=== PATIENT | male | born 1950 | race Caucasian/White ===

== ENCOUNTER 2021-03-09 10:38 | Emergency (ER) | payer OTHER, MEDICARE ==
[~2021-03-09] VITALS: Ht 177.8 cm; Wt 102.1 kg
[2021-03-09 11:32] LABS: BASOPHILS ABSOLUTE AUTO 0.06 K/mm3 (0.00-0.23); BASOPHILS PERCENT AUTO 1 % (0-2); EOSINOPHILS ABSOLUTE AUTO 0.09 K/mm3 (0.00-0.68); EOSINOPHILS PERCENT AUTO 1 % (0-6); Hematocrit 41.4 % (37.0-53.0); Hemoglobin 14.1 g/dL (13.5-17.5); IMMATURE GRAN ABSOLUTE AUTO 0.03 K/mm3 (0.00-0.10); IMMATURE GRAN PERCENT AUTO 0 % (0-1); LYMPHOCYTES ABSOLUTE AUTO 1.62 K/mm3 (0.84-5.20); LYMPHOCYTES PERCENT AUTO 15 % (21-46); MONOCYTES ABSOLUTE AUTO 1.21 K/mm3 (0.16-1.47); MONOCYTES PERCENT AUTO 11 % (4-13); Mean Corpuscular HGB 30.2 pg (26.0-34.0); Mean Corpuscular HGB Conc 34.1 g/dL (31.5-36.5); Mean Corpuscular Volume 89 fL (80-100); Mean Platelet Volume 9.1 fL (9.1-12.4); NEUTROPHILS ABSOLUTE AUTO 7.79 K/mm3 (1.96-9.15); NEUTROPHILS PERCENT AUTO 72 % (41-73); Platelet Count 247 K/mm3 (150-400); RDW Standard Deviation 39.2 fL (35.1-46.3); Red Blood Cell Count 4.67 M/mm3 (4.30-5.90)
[2021-03-09 11:50] LABS: Alanine Aminotransfer (ALT/SGP 20 U/L (12-78); Albumin, Blood 3.4 g/dL (3.4-5.0); Albumin/Globulin Ratio 0.9 (0.8-1.8); Alk Phos 53 U/L (50-136); Anion Gap 6 mmol/L (6-16); Aspartate Aminotrans (AST/SGOT 14 U/L (12-37); Bilirubin, Total 0.9 mg/dL (0.1-1.0); Blood Urea Nitrogen 18 mg/dL (8-24); Bun/Creatinine Ratio 16.1 (12.0-20.0); CO2, Blood 25 mmol/L (21-32); CPK Creatine Kinase 52 U/L (39-308); Chloride, Blood 104 mmol/L (98-108); Creatinine, Blood 1.12 mg/dL (0.60-1.20); Globulin, Blood 3.6 g/dL (2.2-4.0); Glomerular Filtration Rate >60 (60-); Glucose, Blood 106 mg/dL (70-99); Potassium, Blood 4.1 mmol/L (3.5-5.5); Sodium, Blood 135 mmol/L (136-145)
[2021-03-09] MEDS ORDERED: HYDR1TAB94 PO (11:56)
[2021-03-09] MEDS ORDERED: PSEU120ER PO (11:56)
[2021-03-09] MEDS ORDERED: METF500 PO (11:56)
[2021-03-09] MEDS ORDERED: Tessalon200 MG PO (11:58)
[2021-03-09] MEDS ORDERED: NITR100CA PO (11:58)
[2021-03-09] MEDS ORDERED: SPIR25 (11:59)
[2021-03-09] MEDS ORDERED: ASPI81CH PO (12:12)
[2021-03-09] MEDS ORDERED: TRAZ100 PO (12:12)
[2021-03-09] MEDS ORDERED: CYCL10 PO (12:12)
[2021-03-09] MEDS ORDERED: ONDA4ODT MM (14:23)
== END 2021-03-09 14:50 | disposition home or self-care (01) ==
LOC: ER 10:38
PROVIDERS: Emergency Medicine
DX: K52.9 Noninfective gastroenteritis and colitis, unspecified (principal); R53.83 Other fatigue; Z88.2 Allergy status to sulfonamides
CPT/HCPCS: 80053; 82550; 85025; 93005; 93010; 96374; 99284-25; J2405

== ENCOUNTER → 2021-07-15 | Outpatient (CLI) | payer OTHER, MEDICARE ==
[~2021-07-15] MED LIST: ASPI81CH PO; CYCL10 PO; HYDR1TAB94 PO; METF500 PO; NITR100CA PO; ONDA4ODT MM; PSEU120ER PO; SPIR25; TRAZ100 PO; Tessalon200 MG PO
[2021-07-15 19:24] LABS: Microalb/Creat Ratio UR, Rand 6.008 mg/g (0.000-30.000); Microalbumin, Random Urine 7.21 mg/L (0.000-20.000)
== END | disposition home or self-care (01) ==
LOC: LAB 14:20 → LAB SHORT 14:20 → LAB FUT 06-29 15:50
PROVIDERS: Family Medicine
DX: E11.42 Type 2 diabetes mellitus with diabetic polyneuropathy (principal)
CPT/HCPCS: 82043; 82570

== ENCOUNTER → 2022-02-03 | Outpatient (CLI) | payer OTHER, MEDICARE ==
[2022-02-03 15:00] LABS: Creatinine, Urine Random 96.5 mg/dL (27.00-270.00)
[2022-02-03 15:03] LABS: Microalb/Creat Ratio UR, Rand 6.052 mg/g (0.000-30.000); Microalbumin, Random Urine 5.84 mg/L (0.000-20.000)
== END | disposition home or self-care (01) ==
LOC: LAB SHORT 12:28
PROVIDERS: Family Medicine
DX: E11.9 Type 2 diabetes mellitus without complications (principal)
CPT/HCPCS: 82043; 82570

== ENCOUNTER 2023-01-18 18:43 | Emergency (ER) | payer OTHER ==
[~2023-01-18] VITALS: Ht 180.3 cm; Wt 108.9 kg
[2023-01-18 19:30] VITALS: BP 134/68
[2023-01-18 19:37] LABS: BASOPHILS ABSOLUTE AUTO 0.05 K/mm3 (0.00-0.23); BASOPHILS PERCENT AUTO 1 % (0-2); EOSINOPHILS PERCENT AUTO 3 % (0-6); Hematocrit 37.8 % (37.0-53.0); Hemoglobin 12.4 g/dL (13.5-17.5); IMMATURE GRAN ABSOLUTE AUTO 0.02 K/mm3 (0.00-0.10); IMMATURE GRAN PERCENT AUTO 0 % (0-1); LYMPHOCYTES PERCENT AUTO 21 % (21-46); MONOCYTES ABSOLUTE AUTO 1.36 K/mm3 (0.16-1.47); MONOCYTES PERCENT AUTO 15 % (4-13); Mean Corpuscular HGB 30.8 pg (26.0-34.0); Mean Corpuscular HGB Conc 32.8 g/dL (31.5-36.5); Mean Corpuscular Volume 94 fL (80-100); Mean Platelet Volume 8.8 fL (9.1-12.4); NEUTROPHILS PERCENT AUTO 60 % (41-73); Platelet Count 262 K/mm3 (150-400); RDW Coefficient Variation 12.5 % (11.7-14.2); RDW Standard Deviation 43.8 fL (35.1-46.3); Red Blood Cell Count 4.02 M/mm3 (4.30-5.90); White Blood Cell Count 9.33 K/mm3 (4.00-11.30)
[2023-01-18 19:56] LABS: Albumin/Globulin Ratio 0.8 (0.8-1.8); Bilirubin, Total 0.3 mg/dL (0.1-1.0); Calcium, Blood 9.2 mg/dL (8.5-10.1); Creatinine, Blood 1.25 mg/dL (0.60-1.20); Globulin, Blood 3.6 g/dL (2.2-4.0); Total Protein, Blood 6.6 g/dL (6.4-8.2)
[2023-01-18] MEDS ORDERED: CEPH500 PO (21:31)
== END 2023-01-18 21:58 | disposition home or self-care (01) ==
LOC: ER 18:43
PROVIDERS: Student in an Organized Health Care Education/Training Program
DX: S00.83XA Contusion of other part of head, initial encounter (principal); S00.31XA Abrasion of nose, initial encounter; L89.322 Pressure ulcer of left buttock, stage 2; L89.312 Pressure ulcer of right buttock, stage 2; W01.10XA Fall on same level from slipping, tripping and stumbling with subsequent striking against unspecified object, initial encounter; Z88.5 Allergy status to narcotic agent; Z88.2 Allergy status to sulfonamides; Z79.899 Other long term (current) drug therapy; Z79.84 Long term (current) use of oral hypoglycemic drugs; Z79.82 Long term (current) use of aspirin; I10 Essential (primary) hypertension; E11.9 Type 2 diabetes mellitus without complications
CPT/HCPCS: 70450; 80053; 85025; 90471; 90714; 93005; 93010; 99284-25; A9270

== ENCOUNTER 2023-03-26 00:39 | Day surgery (SDC) | payer MEDICARE ==
[~2023-03-26 00:39] MED LIST changes: +CEPH500 PO
== END 2023-03-26 22:49 | disposition home or self-care (01) ==
LOC: WOUND 00:39
DX: E11.622 Type 2 diabetes mellitus with other skin ulcer (principal); T21.2 Burn of second degree of trunk; L98.499 Non-pressure chronic ulcer of skin of other sites with unspecified severity
CPT/HCPCS: G0463

== ENCOUNTER 2023-03-29 08:00 | Day surgery (SDC) | payer MEDICARE | END 2023-03-29 23:59 | disposition home or self-care (01) | LOC: WOUND 08:00 | DX: E11.622 Type 2 diabetes mellitus with other skin ulcer (principal); L98.499 Non-pressure chronic ulcer of skin of other sites with unspecified severity; T21.2 Burn of second degree of trunk | CPT/HCPCS: G0463 ==

== ENCOUNTER 2023-04-05 03:49 | Day surgery (SDC) | payer MEDICARE | END 2023-04-05 22:43 | disposition home or self-care (01) | LOC: WOUND 03:49 | DX: T21.2 Burn of second degree of trunk (principal); X16.XXXS Contact with hot heating appliances, radiators and pipes, sequela; L98.499 Non-pressure chronic ulcer of skin of other sites with unspecified severity; E11.622 Type 2 diabetes mellitus with other skin ulcer | CPT/HCPCS: G0463 ==

== ENCOUNTER 2023-04-12 01:17 | Day surgery (SDC) | payer MEDICARE | END 2023-04-12 22:40 | disposition home or self-care (01) | LOC: WOUND 01:17 | DX: E11.622 Type 2 diabetes mellitus with other skin ulcer (principal); L98.499 Non-pressure chronic ulcer of skin of other sites with unspecified severity; T21.2 Burn of second degree of trunk | CPT/HCPCS: G0463 ==

== ENCOUNTER 2023-04-25 04:44 | Day surgery (SDC) | payer MEDICARE | END 2023-04-25 22:58 | disposition home or self-care (01) | LOC: WOUND 04:44 | DX: T21.25XD Burn of second degree of buttock, subsequent encounter (principal); L98.499 Non-pressure chronic ulcer of skin of other sites with unspecified severity; E11.622 Type 2 diabetes mellitus with other skin ulcer | CPT/HCPCS: G0463 ==

== ENCOUNTER 2023-05-09 02:32 | Day surgery (SDC) | payer MEDICARE | END 2023-05-09 23:52 | disposition home or self-care (01) | LOC: WOUND 02:32 | DX: T21.25XD Burn of second degree of buttock, subsequent encounter (principal); E11.622 Type 2 diabetes mellitus with other skin ulcer; L98.499 Non-pressure chronic ulcer of skin of other sites with unspecified severity | CPT/HCPCS: G0463 ==

== ENCOUNTER 2023-05-16 02:38 | Day surgery (SDC) | payer MEDICARE | END 2023-05-16 23:28 | disposition home or self-care (01) | LOC: WOUND 02:38 | DX: T21.25XD Burn of second degree of buttock, subsequent encounter (principal); L98.499 Non-pressure chronic ulcer of skin of other sites with unspecified severity; E11.622 Type 2 diabetes mellitus with other skin ulcer | CPT/HCPCS: G0463 ==

== ENCOUNTER 2023-05-23 05:19 | Day surgery (SDC) | payer MEDICARE | END 2023-05-23 23:09 | disposition home or self-care (01) | LOC: WOUND 05:19 | DX: T21.2 Burn of second degree of trunk (principal); E11.622 Type 2 diabetes mellitus with other skin ulcer; L98.499 Non-pressure chronic ulcer of skin of other sites with unspecified severity; X08.8XXS Exposure to other specified smoke, fire and flames, sequela | CPT/HCPCS: G0463 ==

== ENCOUNTER 2023-05-30 02:52 | Day surgery (SDC) | payer MEDICARE | END 2023-05-30 22:51 | disposition home or self-care (01) | LOC: WOUND 02:52 | DX: T21.2 Burn of second degree of trunk (principal); E11.622 Type 2 diabetes mellitus with other skin ulcer; L98.499 Non-pressure chronic ulcer of skin of other sites with unspecified severity; X08.8XXS Exposure to other specified smoke, fire and flames, sequela | CPT/HCPCS: G0463 ==

== ENCOUNTER 2023-06-06 04:53 | Day surgery (SDC) | payer MEDICARE | END 2023-06-06 23:31 | disposition home or self-care (01) | LOC: WOUND 04:53 | DX: T21.2 Burn of second degree of trunk (principal); X08.8XXD Exposure to other specified smoke, fire and flames, subsequent encounter; E11.622 Type 2 diabetes mellitus with other skin ulcer; L98.499 Non-pressure chronic ulcer of skin of other sites with unspecified severity | CPT/HCPCS: G0463 ==

== ENCOUNTER 2023-06-13 02:06 | Day surgery (SDC) | payer MEDICARE | END 2023-06-13 22:54 | disposition home or self-care (01) | LOC: WOUND 02:06 | DX: T21.2 Burn of second degree of trunk (principal); E11.622 Type 2 diabetes mellitus with other skin ulcer; L98.499 Non-pressure chronic ulcer of skin of other sites with unspecified severity; X08.8XXS Exposure to other specified smoke, fire and flames, sequela | CPT/HCPCS: G0463 ==

== ENCOUNTER 2023-06-20 06:18 | Day surgery (SDC) | payer MEDICARE | END 2023-06-20 23:03 | disposition home or self-care (01) | LOC: WOUND 06:18 | DX: T21.2 Burn of second degree of trunk (principal); E11.622 Type 2 diabetes mellitus with other skin ulcer; L98.499 Non-pressure chronic ulcer of skin of other sites with unspecified severity; X16.XXXS Contact with hot heating appliances, radiators and pipes, sequela | CPT/HCPCS: G0463 ==

== ENCOUNTER 2023-06-27 02:35 | Day surgery (SDC) | payer MEDICARE | END 2023-06-27 23:04 | disposition home or self-care (01) | LOC: WOUND 02:35 | DX: T21.2 Burn of second degree of trunk (principal); E11.622 Type 2 diabetes mellitus with other skin ulcer; L98.499 Non-pressure chronic ulcer of skin of other sites with unspecified severity; X08.8XXS Exposure to other specified smoke, fire and flames, sequela | CPT/HCPCS: G0463 ==

== ENCOUNTER 2023-07-04 01:56 | Day surgery (SDC) | payer MEDICARE | END 2023-07-04 22:38 | disposition home or self-care (01) | LOC: WOUND 01:56 | DX: T21.2 Burn of second degree of trunk (principal); E11.622 Type 2 diabetes mellitus with other skin ulcer; L98.499 Non-pressure chronic ulcer of skin of other sites with unspecified severity; X08.8XXS Exposure to other specified smoke, fire and flames, sequela | CPT/HCPCS: G0463 ==

== ENCOUNTER → 2023-08-04 | Outpatient (CLI) | payer MEDICARE | LOC: LAB 09:30 → LAB SHORT 09:30 | DX: N39.0 Urinary tract infection, site not specified (principal) | CPT/HCPCS: 87077; 87086; 87186 ==

== ENCOUNTER → 2024-05-23 | Outpatient (CLI) | payer OTHER ==
[2024-05-23 18:35] LABS: Source, Urine Voided
[2024-05-23 19:21] LABS: Appearance, Urine Turbid (Clear); Bilirubin, Urine Neg (Neg); Blood, Urine Neg (Neg); Color, Urine Yellow (P-Yellow); Glucose Qualitative, Urine Neg (Neg); Ketones, Urine Neg (Neg); Leukocyte Esterase, Urine 1+ (Neg); Nitrite, Urine Neg (Neg); Protein, Urine 1+ (Neg); Specific Gravity, Urine 1.025 (1.003-1.022); Urobilinogen, Urine 1+ (Normal)
[2024-05-23 19:39] LABS: Amorphous Heavy (0-Heavy)
[2024-05-23 19:40] LABS: Bacteria Mod /hpf; Red Blood Cells, Urine 0-2 /hpf (0-2); Squamous Epithelial Cells Rare /hpf (Few)
== END ==
LOC: LAB SHORT 18:33 → LAB 18:33
PROVIDERS: Physician Assistant
DX: N39.0 Urinary tract infection, site not specified (principal)
CPT/HCPCS: 81001; 87086

== ENCOUNTER → 2024-07-20 | Outpatient (CLI) | payer OTHER ==
[2024-07-20 17:48] LABS: BASOPHILS ABSOLUTE AUTO 0.06 K/mm3 (0.00-0.23); BASOPHILS PERCENT AUTO 1 % (0-2); EOSINOPHILS ABSOLUTE AUTO 0.58 K/mm3 (0.00-0.68); EOSINOPHILS PERCENT AUTO 7 % (0-6); Hematocrit 42.6 % (37.0-53.0); Hemoglobin 14.2 g/dL (13.5-17.5); IMMATURE GRAN ABSOLUTE AUTO 0.02 K/mm3 (0.00-0.10); IMMATURE GRAN PERCENT AUTO 0 % (0-1); LYMPHOCYTES ABSOLUTE AUTO 2.11 K/mm3 (0.84-5.20); LYMPHOCYTES PERCENT AUTO 25 % (21-46); MONOCYTES ABSOLUTE AUTO 0.74 K/mm3 (0.16-1.47); MONOCYTES PERCENT AUTO 9 % (4-13); Mean Corpuscular HGB 31.3 pg (26.0-34.0); Mean Corpuscular HGB Conc 33.3 g/dL (31.5-36.5); Mean Corpuscular Volume 94 fL (80-100); Mean Platelet Volume 9.4 fL (9.1-12.4); NEUTROPHILS PERCENT AUTO 59 % (41-73); Platelet Count 245 K/mm3 (150-400); RDW Coefficient Variation 13.1 % (11.7-14.2); Red Blood Cell Count 4.53 M/mm3 (4.30-5.90); White Blood Cell Count 8.61 K/mm3 (4.00-11.30)
[2024-07-20 18:02] LABS: LDL/HDL RATIO 0.8
[2024-07-20 18:03] LABS: Alanine Aminotransfer (ALT/SGP 19 U/L (12-78); Albumin, Blood 3.4 g/dL (3.4-5.0); Albumin/Globulin Ratio 0.9 (0.8-1.8); Alk Phos 82 U/L (50-136); Anion Gap 9 mmol/L (3-11); Aspartate Aminotrans (AST/SGOT 19 U/L (12-37); Bilirubin, Total 0.7 mg/dL (0.1-1.0); Blood Urea Nitrogen 15 mg/dL (8-24); Bun/Creatinine Ratio 10.9 (12.0-20.0); CHOL/HDL RATIO 2.3; CO2, Blood 26 mmol/L (21-32); Calcium, Blood 9.1 mg/dL (8.5-10.1); Chloride, Blood 110 mmol/L (98-108); Cholesterol 134 mg/dL (50-200); Creatinine, Blood 1.37 mg/dL (0.60-1.20); Globulin, Blood 3.6 g/dL (2.2-4.0); Glomerular Filtration Rate 54 (60-); Glucose, Blood 117 mg/dL (70-99); HDL Cholesterol 58 mg/dL (>39); Low Density Lipoprotein Chol 49 mg/dL (0-110); Potassium, Blood 4.1 mmol/L (3.5-5.5); Sodium, Blood 141 mmol/L (136-145); Triglycerides 134 mg/dL (30-160); Very Low Density Lipoprot Chol 26 mg/dL (6-32)
== END | disposition home or self-care (01) ==
LOC: LAB 17:37 → LAB SHORT 17:37
PROVIDERS: Physician Assistant
DX: E11.42 Type 2 diabetes mellitus with diabetic polyneuropathy (principal); E11.59 Type 2 diabetes mellitus with other circulatory complications; E11.69 Type 2 diabetes mellitus with other specified complication; R06.00 Dyspnea, unspecified; Z79.899 Other long term (current) drug therapy
CPT/HCPCS: 80053; 80061; 83036; 83880; 85025

== ENCOUNTER 2024-10-06 11:41 | Day surgery (SDC) | payer OTHER ==
[~2024-10-06] VITALS: Ht 177.8 cm; Wt 127.6 kg
[~2024-10-06 11:41] MED LIST changes: +ALBU2.5V5 INH; +Aspir 8181 MG PO; +GABA100 PO; +LORA10ER PO; +NS 500 ML IV ONE; +ZYRTEC10 M2 PO
[2024-10-06] MEDS ORDERED: CeFAZolin Sodium 3,000 MG VIAL ONE (12:03)
[2024-10-06] MEDS ORDERED: propofoL 20 ML IV ONE (12:19)
[2024-10-06] MEDS ORDERED: ROSUVASTATIN CA20 MG PO (12:22)
[2024-10-06] MEDS ORDERED: GABA100 (12:23)
[2024-10-06] MEDS ORDERED: Cranberry425 MG (12:24)
[2024-10-06] MEDS ORDERED: ALBUTEROL SULFATE HF (12:24)
[2024-10-06] MEDS ORDERED: LOSARTAN POTASS25 M2 PO (12:25)
[2024-10-06] MEDS ORDERED: LATA.005SO BOTHEYES (12:26)
[2024-10-06] MEDS ORDERED: VITAMIN D310 MC4 (12:28)
[2024-10-06] MEDS ORDERED: MULTIVITAMIN (12:28)
[2024-10-06] MEDS ORDERED: ZINC PICOLINATE (12:28)
[2024-10-06] MEDS ORDERED: IRON (12:29)
[2024-10-06] MEDS ORDERED: MAGNESIUM (12:29)
[2024-10-06] MEDS ORDERED: NS 500 ML IV ONE (12:30)
--- NOTE | 2024-10-06 12:38 | NUR ---
10/06/24 1238 Connie Carrero TIME OUT PERFORMED AT BEDSIDE WITH DR CRUZ AT 1216 IMMEDIATELY PRIOR TO INJECTION OF 7ML OF SOLUTION CONSISTING OF 9ML 1% LIDOCAINE W/EPI [id number] AND 1 ML 8.4% SODIUM BICARBONATE IN TO L HAND. PATIENT TOLERATED PROCEDURE WELL.
[2024-10-06 13:18] VITALS: BP 111/65
--- NOTE | 2024-10-06 13:29 | NUR ---
10/06/24 Tracee9 Lucio Deluca 150ML IV FLUIDS REMAINING AFTER IV DC AT 1325
== END 2024-10-06 13:50 | disposition home or self-care (01) ==
LOC: ORSCSDS 11:41
PROVIDERS: Orthopaedic Surgery
PROC: 0LN80ZZ Release Left Hand Tendon, Open Approach (ICD-10-PCS; principal; 2024-10-06 13:00)
DX: M65.342 Trigger finger, left ring finger (principal); M65.312 Trigger thumb, left thumb; I10 Essential (primary) hypertension; G47.33 Obstructive sleep apnea (adult) (pediatric); E11.9 Type 2 diabetes mellitus without complications; E66.9 Obesity, unspecified; Z68.41 Body mass index [BMI] 40.0-44.9, adult; Z79.82 Long term (current) use of aspirin; Z79.84 Long term (current) use of oral hypoglycemic drugs; Z79.899 Other long term (current) drug therapy
CPT/HCPCS: 82947; J0690; J2704; J7040

== ENCOUNTER → 2025-04-15 | Outpatient (CLI) | payer OTHER ==
[~2025-04-15] MED LIST changes: +ALBUTEROL SULFATE HF; +Cranberry425 MG; +GABA100; +IRON; +LATA.005SO BOTHEYES; +LOSARTAN POTASS25 M2 PO; +MAGNESIUM; +MULTIVITAMIN; -NS 500 ML IV ONE; +ROSUVASTATIN CA20 MG PO; +VITAMIN D310 MC4; +ZINC PICOLINATE
== END | disposition home or self-care (01) ==
LOC: LAB 17:35 → LAB SHORT 17:35
DX: N39.0 Urinary tract infection, site not specified (principal)
CPT/HCPCS: 87077; 87086; 87186

== ENCOUNTER → 2025-04-26 | Outpatient (CLI) | payer OTHER ==
[2025-04-26 16:23] LABS: BASOPHILS ABSOLUTE AUTO 0.03 K/mm3 (0.00-0.23); BASOPHILS PERCENT AUTO 1 % (0-2); EOSINOPHILS ABSOLUTE AUTO 0.27 K/mm3 (0.00-0.68); EOSINOPHILS PERCENT AUTO 4 % (0-6); Hematocrit 37.6 % (37.0-53.0); Hemoglobin 12.8 g/dL (13.5-17.5); IMMATURE GRAN ABSOLUTE AUTO 0.01 K/mm3 (0.00-0.10); IMMATURE GRAN PERCENT AUTO 0 % (0-1); LYMPHOCYTES ABSOLUTE AUTO 0.87 K/mm3 (0.84-5.20); LYMPHOCYTES PERCENT AUTO 13 % (21-46); MONOCYTES ABSOLUTE AUTO 0.85 K/mm3 (0.16-1.47); MONOCYTES PERCENT AUTO 13 % (4-13); Mean Corpuscular HGB Conc 34.0 g/dL (31.5-36.5); Mean Corpuscular Volume 92 fL (80-100); NEUTROPHILS ABSOLUTE AUTO 4.58 K/mm3 (1.96-9.15); NEUTROPHILS PERCENT AUTO 69 % (41-73); NRBC ABSOLUTE 0.00 K/mm3 (0.00-0.02); NRBC Auto 0.0 /100 WBC (0.0-0.2); Platelet Count 213 K/mm3 (150-400); RDW Coefficient Variation 13.4 % (11.7-14.2); RDW Standard Deviation 45.1 fL (35.1-46.3)
[2025-04-26 16:34] LABS: Alanine Aminotransfer (ALT/SGP 197.0 U/L (12-78); Albumin, Blood 2.7 g/dL (3.4-5.0); Albumin/Globulin Ratio 0.7 (0.8-1.8); Anion Gap 12.0 mmol/L (3-11); Aspartate Aminotrans (AST/SGOT 154.0 U/L (12-37); Bilirubin, Total 1.9 mg/dL (0.1-1.0); Blood Urea Nitrogen 26.0 mg/dL (8-24); CO2, Blood 26.0 mmol/L (21-32); Calcium, Blood 8.9 mg/dL (8.5-10.1); Chloride, Blood 102.0 mmol/L (98-108); Creatinine, Blood 2.15 mg/dL (0.60-1.20); Globulin, Blood 4.0 g/dL (2.2-4.0); Glucose, Blood 149.0 mg/dL (70-99); Potassium, Blood 4.1 mmol/L (3.5-5.5); Sodium, Blood 136.0 mmol/L (136-145); Total Protein, Blood 6.7 g/dL (6.4-8.2)
== END ==
LOC: LAB SHORT 16:20 → LAB 16:20
PROVIDERS: Family Medicine
DX: J18.9 Pneumonia, unspecified organism (principal)
CPT/HCPCS: 80053; 85025

== ENCOUNTER → 2025-04-28 | Outpatient (CLI) | payer OTHER ==
[2025-04-28 12:00] LABS: BASOPHILS ABSOLUTE AUTO 0.05 K/mm3 (0.00-0.23); BASOPHILS PERCENT AUTO 1 % (0-2); EOSINOPHILS ABSOLUTE AUTO 0.54 K/mm3 (0.00-0.68); EOSINOPHILS PERCENT AUTO 7 % (0-6); Hematocrit 38.2 % (37.0-53.0); Hemoglobin 12.9 g/dL (13.5-17.5); IMMATURE GRAN ABSOLUTE AUTO 0.02 K/mm3 (0.00-0.10); IMMATURE GRAN PERCENT AUTO 0 % (0-1); LYMPHOCYTES ABSOLUTE AUTO 1.13 K/mm3 (0.84-5.20); LYMPHOCYTES PERCENT AUTO 14 % (21-46); MONOCYTES ABSOLUTE AUTO 1.00 K/mm3 (0.16-1.47); MONOCYTES PERCENT AUTO 13 % (4-13); Mean Corpuscular HGB Conc 33.8 g/dL (31.5-36.5); Mean Corpuscular Volume 92 fL (80-100); NEUTROPHILS ABSOLUTE AUTO 5.23 K/mm3 (1.96-9.15); NEUTROPHILS PERCENT AUTO 66 % (41-73); NRBC ABSOLUTE 0.00 K/mm3 (0.00-0.02); NRBC Auto 0.0 /100 WBC (0.0-0.2); Platelet Count 241 K/mm3 (150-400); RDW Coefficient Variation 13.8 % (11.7-14.2); RDW Standard Deviation 47.3 fL (35.1-46.3)
[2025-04-28 12:11] LABS: Alanine Aminotransfer (ALT/SGP 201.0 U/L (12-78); Albumin, Blood 2.7 g/dL (3.4-5.0); Albumin/Globulin Ratio 0.6 (0.8-1.8); Anion Gap 15.0 mmol/L (3-11); Aspartate Aminotrans (AST/SGOT 179.0 U/L (12-37); Bilirubin, Total 1.5 mg/dL (0.1-1.0); Blood Urea Nitrogen 25.0 mg/dL (8-24); CO2, Blood 24.0 mmol/L (21-32); Calcium, Blood 9.5 mg/dL (8.5-10.1); Chloride, Blood 101.0 mmol/L (98-108); Creatinine, Blood 1.96 mg/dL (0.60-1.20); Globulin, Blood 4.2 g/dL (2.2-4.0); Glucose, Blood 121.0 mg/dL (70-99); Magnesium, Blood 2.2 mg/dL (1.6-2.4); Potassium, Blood 4.5 mmol/L (3.5-5.5); Sodium, Blood 135.0 mmol/L (136-145); Total Protein, Blood 6.9 g/dL (6.4-8.2)
== END ==
LOC: LAB SHORT 11:54 → LAB 11:54
PROVIDERS: Chiropractor
DX: R06.00 Dyspnea, unspecified (principal); R17 Unspecified jaundice
CPT/HCPCS: 80053; 82248; 83735; 83880; 84484; 85025

== ENCOUNTER → 2025-04-29 | Outpatient (CLI) | payer OTHER ==
[2025-04-29 12:02] LABS: BASOPHILS ABSOLUTE AUTO 0.05 K/mm3 (0.00-0.23); BASOPHILS PERCENT AUTO 1 % (0-2); EOSINOPHILS ABSOLUTE AUTO 0.56 K/mm3 (0.00-0.68); EOSINOPHILS PERCENT AUTO 7 % (0-6); Hematocrit 37.1 % (37.0-53.0); Hemoglobin 12.5 g/dL (13.5-17.5); IMMATURE GRAN ABSOLUTE AUTO 0.13 K/mm3 (0.00-0.10); IMMATURE GRAN PERCENT AUTO 2 % (0-1); LYMPHOCYTES ABSOLUTE AUTO 1.32 K/mm3 (0.84-5.20); LYMPHOCYTES PERCENT AUTO 16 % (21-46); MONOCYTES ABSOLUTE AUTO 1.09 K/mm3 (0.16-1.47); MONOCYTES PERCENT AUTO 13 % (4-13); Mean Corpuscular HGB Conc 33.7 g/dL (31.5-36.5); Mean Corpuscular Volume 93 fL (80-100); NEUTROPHILS ABSOLUTE AUTO 5.27 K/mm3 (1.96-9.15); NEUTROPHILS PERCENT AUTO 63 % (41-73); NRBC ABSOLUTE 0.00 K/mm3 (0.00-0.02); NRBC Auto 0.0 /100 WBC (0.0-0.2); Platelet Count 243 K/mm3 (150-400); RDW Coefficient Variation 14.0 % (11.7-14.2); RDW Standard Deviation 47.8 fL (35.1-46.3)
[2025-04-29 12:11] LABS: Alanine Aminotransfer (ALT/SGP 188.0 U/L (12-78); Albumin, Blood 2.7 g/dL (3.4-5.0); Albumin/Globulin Ratio 0.7 (0.8-1.8); Anion Gap 12.0 mmol/L (3-11); Aspartate Aminotrans (AST/SGOT 151.0 U/L (12-37); Bilirubin, Total 1.3 mg/dL (0.1-1.0); Blood Urea Nitrogen 23.0 mg/dL (8-24); CO2, Blood 26.0 mmol/L (21-32); Calcium, Blood 9.5 mg/dL (8.5-10.1); Chloride, Blood 101.0 mmol/L (98-108); Creatinine, Blood 1.98 mg/dL (0.60-1.20); Globulin, Blood 4.1 g/dL (2.2-4.0); Glucose, Blood 124.0 mg/dL (70-99); Potassium, Blood 4.4 mmol/L (3.5-5.5); Sodium, Blood 135.0 mmol/L (136-145); Total Protein, Blood 6.8 g/dL (6.4-8.2)
[2025-05-01 09:59] LABS: HEPATITIS A ANTIBODY, IGM Negative (Negative); HEPATITIS C AB CIA INTERP Negative (Negative); HEPATITIS C ANTIBODY CIA INDEX <0.02 IV
== END | disposition home or self-care (01) ==
LOC: LAB SHORT 11:57 → LAB 11:57
PROVIDERS: Chiropractor
DX: R74.8 Abnormal levels of other serum enzymes (principal); R17 Unspecified jaundice; R82.90 Unspecified abnormal findings in urine
CPT/HCPCS: 80053; 80074; 82977; 85025; 87086

== ENCOUNTER → 2025-05-21 | Outpatient (CLI) | payer OTHER ==
[2025-05-21 16:45] LABS: Protein, Urine Quantitative 11.9 mg/dL (0.0-11.9)
[2025-05-21 16:48] LABS: Microalbumin, Urine Quant. <5.000 mg/L (0.000-20.000)
== END ==
LOC: LAB SHORT 08:30 → LAB 08:30
PROVIDERS: Internal Medicine Nephrology
DX: N18.30 Chronic kidney disease, stage 3 unspecified (principal); D63.1 Anemia in chronic kidney disease; N25.81 Secondary hyperparathyroidism of renal origin; E55.9 Vitamin D deficiency, unspecified; E78.00 Pure hypercholesterolemia, unspecified; N40.1 Benign prostatic hyperplasia with lower urinary tract symptoms; R76.9 Abnormal immunological finding in serum, unspecified; R94.5 Abnormal results of liver function studies; R94.6 Abnormal results of thyroid function studies; G60.9 Hereditary and idiopathic neuropathy, unspecified; D51.8 Other vitamin B12 deficiency anemias; D52.8 Other folate deficiency anemias; D50.9 Iron deficiency anemia, unspecified
CPT/HCPCS: 81050; 82043; 82570; 84156